=== PATIENT | female | born 1955 | race Caucasian/White ===

== ENCOUNTER 2018-11-18 14:37 | Inpatient (IN) | payer OTHER ==
[2018-11-18 17:14] VITALS: BMI 33.0
[2018-11-18 18:57] LABS: #Basophils 0.1 thou/uL (0.0-0.2); #Eosinphils 0.2 thou/uL (0.0-0.7); #Lymphocytes 1.9 thou/uL (1.20-3.40); #Monocytes 0.7 thou/uL (0.11-0.59); #Neutrophils 4.2 thou/uL (1.40-6.50); %Basophils 1.4 % (0.0-1.0); %Eosinophils 2.3 % (0.0-10.0); %Lymphocytes 26.8 % (21.0-51.0); %Monocytes 10.5 % (0.0-10.0); Hemoglobin 12.7 g/dL (12.0-16.0); Mean Corpuscular HGB CONC 33.1 g/dL (32.0-36.0); Mean Corpuscular Hemoglobin 33.9 pg (27.0-31.0); Mean Platelet Volume 7.8 fL (7.4-10.4); Platelet Count 269 thou/uL (130-400); RBC Distribution Width 11.7 % (11.5-14.5); Red Blood Cell (RBC) Count 3.75 mill/uL (4.20-5.40); White Blood Cell (WBC) Count 7.1 thou/uL (4.8-10.8)
[2018-11-18 19:22] LABS: Anion Gap 19 mmol/L (10-20); BUN (Urea Nitrogen) 17 mg/dL (9.8-20.1); Calc. Creatinine Clearance 102 mL/min (70-130); Calcium 10.1 mg/dL (7.8-10.44); Carbon Dioxide 21 mmol/L (23-31); Chloride 98 mmol/L (98-107); Estimated GFR-MDRD 68; Glucose 94 mg/dL (80-115); Magnesium 2.1 mg/dL (1.6-2.6); Potassium 3.7 mmol/L (3.5-5.1); Sodium 134 mmol/L (136-145)
[2018-11-18] MEDS ORDERED: Zolpidem Tartrate 5 MG TAB PO PRN (20:51)
[2018-11-18] MEDS: Sotalol HCl 80 MG TAB PO SCH (20:59)
[2018-11-18] MEDS: Atorvastatin Calcium 20 MG TAB PO SCH (21:08)
[2018-11-18] MEDS: Sacubitril 49 MG/Valsartan 51 MG TABLET PO SCH (21:08)
[2018-11-18] MEDS: Carvedilol 6.25 MG TAB PO SCH (21:09)
--- NOTE | 2018-11-19 04:42 | CON ---
DATE OF CONSULTATION: PRIMARY CARE PHYSICIAN: Ankita Boland. TAX MANAGER: Donald Garcia MD. EP TAX MANAGER: Chaitanya Quesada MD. CODE STATUS: The patient is a full code. CHIEF COMPLAINT: Atrial fibrillation and dyspnea on exertion. HISTORY OF PRESENT ILLNESS: The patient is a 63-year-old female, who is a direct admit from Dr. Quesada's office for initiation of sotalol therapy for AFib and dyspnea on exertion. We were asked to consult to otherwise medically manage. The patient reports in 10/2017, Dr. Garcia discovered a left bundle branch block. They inserted a pacemaker. In May, she started having some dyspnea on exertion. Dr. Quesada did a Holter monitor and discovered that she had AFib. They started having discussions in September about medical management. Three weeks ago, she had called the office and they scheduled her to come in on date of admission to start the sotalol therapy with EKG, labs, and monitoring. The patient was admitted to the telemetry unit with orders from Dr. Quesada's office. PAST MEDICAL HISTORY: Includes hypertension, left bundle branch block, atrial fibrillation, hyperlipidemia, and PUD. HOME MEDICATIONS: Include; 1. Entresto 97/103 mg one tablet p.o. b.i.d. 2. Aspirin 81 mg p.o. daily. 3. Lipitor 20 mg p.o. at bedtime. 4. Coreg 25 mg p.o. b.i.d. 5. Iron 325 mg p.o. daily. 6. Protonix 40 mg p.o. daily. 7. Spironolactone 25 mg p.o. daily. ALLERGIES: NONE. REVIEW OF SYSTEMS: CONSTITUTIONAL: Denies fever or chills. EYES: Denies any vision changes, eye pain. ENT: Denies sore throat, postnasal drip. CARDIOVASCULAR: Reports occasional palpitations. Reports dyspnea on exertion. Denies any orthopnea. RESPIRATORY: Denies cough. Denies shortness of breath. GI: Denies abdominal pain. Denies nausea, vomiting, or diarrhea. : Denies dysuria, hematuria. SKIN: Denies any skin changes or rash. NEUROLOGIC: Denies any dizziness, headache. ENDOCRINE: Denies any polyuria, polydipsia. PSYCH: Denies anxiety. Denies depression. PHYSICAL EXAMINATION: VITAL SIGNS: Temperature is 97.6, pulse 68, blood pressure 158/81, respiratory rate is 14, PO sat is 98% on room air. Repeat blood pressure 116/80. CONSTITUTIONAL: The patient appears in no distress and nontoxic, is alert and oriented to person, place, and time. HEAD: Normocephalic, atraumatic. EYES: Eyelids are normal to inspection. Pupils are equally round and reactive to light. ENT: Mouth exam is normal. Mucous membranes are moist. NECK: Normal range of motion. Trachea is midline. RESPIRATORY/CHEST: Breath sounds are clear. Chest movement is symmetrical. CARDIOVASCULAR: Heart rate is regular rate and rhythm. Heart sounds are normal. ABDOMEN: Nontender. Bowel sounds are heard. BACK: Normal inspection. Normal range of motion. UPPER EXTREMITY: Normal inspection. Normal range of motion. Pulses are equal bilaterally. LOWER EXTREMITY: Normal inspection. Normal range of motion. Pedal pulses are equal bilaterally. No edema is noted. NEUROLOGIC: The patient is oriented to person, place, and time. Speech is normal. SKIN: Normal, dry, normal in color. PSYCH: Has a normal affect. ASSESSMENT AND PLAN: 1. We will obtain baseline labs to start the sotalol therapy. Baseline EKG. 2. Hypertension. We will continue to trend. Continue home medications. Per Dr. Quesada's order, we will decrease Coreg to mg p.o. b.i.d. from 25 mg p.o. b.i.d. We will get in sotalol therapy as ordered. 3. Hyperlipidemia. Check lipids in the morning. We will continue home medication. 4. Peptic ulcer disease. We will continue home medications. 5. Deep venous thromboses. Prophylaxis will be started. 6. Hospital course will depend on clinical findings. Job ID: [id number]
[2018-11-19 05:27] LABS: #Eosinphils 0.1 thou/uL (0.0-0.7); #Lymphocytes 1.3 thou/uL (1.20-3.40); #Monocytes 0.7 thou/uL (0.11-0.59); %Basophils 0.6 % (0.0-1.0); %Eosinophils 2.8 % (0.0-10.0); %Lymphocytes 24.3 % (21.0-51.0); %Monocytes 13.9 % (0.0-10.0); %Neutrophils 58.4 % (42.0-75.0); Hemoglobin 12.7 g/dL (12.0-16.0); Mean Corpuscular Hemoglobin 33.8 pg (27.0-31.0); Mean Platelet Volume 7.8 fL (7.4-10.4); Platelet Count 239 thou/uL (130-400); RBC Distribution Width 11.7 % (11.5-14.5); Red Blood Cell (RBC) Count 3.77 mill/uL (4.20-5.40); White Blood Cell (WBC) Count 5.2 thou/uL (4.8-10.8)
[2018-11-19 05:47] LABS: Anion Gap 15 mmol/L (10-20); BUN (Urea Nitrogen) 15 mg/dL (9.8-20.1); Calc. Creatinine Clearance 101 mL/min (70-130); Calcium 9.8 mg/dL (7.8-10.44); Carbon Dioxide 23 mmol/L (23-31); Chloride 100 mmol/L (98-107); Estimated GFR-MDRD 67; Glucose 105 mg/dL (80-115); Magnesium 2.2 mg/dL (1.6-2.6); Potassium 4.2 mmol/L (3.5-5.1); Sodium 134 mmol/L (136-145)
--- NOTE | 2018-11-19 08:16 | PDOC.PN ---
- Subjective Encounter Start Date: 11/19/18 Encounter Start Time: 08:14 Subjective: has KENNEDY - Objective MAR Reviewed: Yes Vital Signs & Weight: Vital Signs (12 hours) Temp Pulse Resp BP BP Pulse Ox 11/19/18 04:00 98.0 F 86 16 120/83 100 11/18/18 23:39 97.6 F 68 14 116/80 98 11/18/18 20:59 91 158/81 H Weight Weight 211 lb 3 oz Result Diagrams: 11/19/18 04:29 11/19/18 04:29 Phys Exam - Physical Examination Neck: no JVD Respiratory: clear to auscultation bilateral Cardiovascular: RRR, no significant murmur Gastrointestinal: soft, non-tender, positive bowel sounds Musculoskeletal: no edema, edema present Dx/Plan (1) Cardiomyopathy Code(s): I42.9 - CARDIOMYOPATHY, UNSPECIFIED Status: Chronic Qualifiers: Cardiomyopathy type: unspecified Qualified Code(s): I42.9 - Cardiomyopathy , unspecified (2) HTN (hypertension) Code(s): I10 - ESSENTIAL (PRIMARY) HYPERTENSION Status: Chronic Qualifiers: Hypertension type: essential hypertension Qualified Code(s): I10 - Essential (primary) hypertension (3) Dyslipidemia Code(s): E78.5 - HYPERLIPIDEMIA, UNSPECIFIED Status: Chronic (4) Atrial arrhythmia Code(s): I49.8 - OTHER SPECIFIED CARDIAC ARRHYTHMIAS Status: Acute - Plan in for tykosyn loading, monitor EKG -: cont coreg, entresto * .
[2018-11-19] MEDS: Spironolactone 25 MG TAB PO SCH (10:00)
[2018-11-19] MEDS: Aspirin Chewable 81 MG TAB PO SCH (10:00)
[2018-11-19] MEDS: Sacubitril 49 MG/Valsartan 51 MG TABLET PO SCH ×2 (10:02→22:05)
[2018-11-19] MEDS: Sotalol HCl 80 MG TAB PO SCH ×2 (10:03→22:05)
[2018-11-19] MEDS: Carvedilol 6.25 MG TAB PO SCH ×2 (11:03→16:07)
--- NOTE | 2018-11-19 13:16 | HP ---
ELECTROPHYSIOLOGY CONSULTATION REASON FOR CONSULTATION: Medication management, sotalol loading, high burden of premature atrial contractions. REFERRING PHYSICIAN: Saulo Becerra MD PRIMARY CARE PROVIDER: Ankita Boland. HISTORY OF PRESENT ILLNESS: Ms. Metzger is a pleasant 63-year-old woman known to our practice for history of nonischemic cardiomyopathy, who has inclusion of a biventricular pacemaker that was placed in November 2017. Her heart failure is managed by Dr. Garcia. She was started on Entresto earlier this year, which initially made her to feel some improvement in relief from heart failure symptoms that she continues to struggle with shortness of breath that is consistently experience after 1 flight of stairs. She has seen very small improvement in her ejection fraction since undergoing SAFETY SPECIALIST device implant. She had a Holter monitor ordered in June 2018 that revealed high-burden PACs, but no ventricular ectopies. When she was seen for followup in September, it was decided to attempt arrhythmia suppression sotalol for frequent premature atrial complexes. Hopefully, this will offer some relief from her shortness of breath. Ultimately, we did discuss an ablation for her PACs, which she has previously declined. Ms. Metzger was admitted yesterday to [facility] for sotalol loading. She is in her usual state of health and feels well other than having her predictable shortness of breath with minimal exertion. She denies any heart racing, palpitations, chest pain, pressure, syncope, near syncope, stroke, stroke-like symptoms, or perceived ICD discharges. REVIEW OF SYSTEMS: A 12-point review of systems is conducted, is negative except that listed above in HPI. PAST MEDICAL HISTORY: 1. Nonischemic cardiomyopathy, ejection fraction 40%. 2. Left bundle branch block, corrected with SAFETY SPECIALIST pacing. 3. Hypertension. 4. Hypothyroidism. 5. Biventricular pacemaker, Medtronic implanted on 12/05/2017. 6. Frequent premature atrial complexes. ALLERGIES: NO KNOWN DRUG ALLERGIES. HOME MEDICATIONS: Include: 1. Entresto 97/103 mg p.o. b.i.d. 2. Aspirin 81 mg p.o. daily. 3. Coreg 25 mg p.o. b.i.d. 4. Aldactone 25 mg daily. 5. Pantoprazole 40 mg daily. 6. Ferrous sulfate 325 mg p.o. daily. 7. Atorvastatin 20 mg p.o. at bedtime. PHYSICAL EXAMINATION: VITAL SIGNS: Temperature 97.0, pulse 78, blood pressure 140/89, respirations 16, and oxygen is 98% on room air. GENERAL: The patient is alert and oriented, well groomed, well appearing. Affect is normal. HEENT: She is normocephalic. EOMs are intact. Oral mucosa is moist and pink. NECK: Supple without jugular venous distention. Thyroid is nonpalpable. LUNGS: Clear to auscultation bilaterally without wheezes, crackles, or rhonchi appreciated. CARDIOVASCULAR: Heart rate is regular without significant murmur, rub, or gallop. PMI is nondisplaced. The device is seen at the left infraclavicular fossa and site is without swelling, bruising, erosion, or drainage. ABDOMEN: Soft and nontender without palpable masses. EXTREMITIES: Warm and dry to touch without clubbing, cyanosis, or edema. NEUROLOGIC: Grossly intact and nonfocal. Her gait is stable. DATABASE: EKG and telemetry today reveal sinus rhythm, atrial pacing with intact AV edgardo conduction and ventricular capture with evidence of cardiac resynchronization therapy. A 12-lead EKG on admission reveals a QTc of 469 milliseconds. A 12-lead EKG from 11/18 at 2300 hours after first dose of sotalol 120 mg, QTc is 541 milliseconds. LABORATORY DATA: Hematology was reviewed and is unremarkable. Chemistry; potassium 4.2, creatinine 0.85, and magnesium is 2.2. IMPRESSION: 1. Premature atrial contractions, high burden possibly contributing to her shortness of breath. 2. Biventricular pacemaker in situ, normal operation benefitting from consistent cardiac resynchronization therapy. 3. Chronic systolic heart failure with a moderately reduced ejection fraction of 35% to 40%, NYHA functional class 3. 4. Normal heart catheterization 2 years ago. 5. Sotalol initiation with QTc prolongation after first dose of sotalol 120 mg. RECOMMENDATIONS: We will decrease sotalol to 80 mg, which was started with the morning dose on 11/19. Continue with 12-lead EKG two hours after every dose of sotalol. We will continue to monitor closely through telemetry. Thank you for allowing us to participate in the care of the patient. Job ID: [id number]
--- NOTE | 2018-11-19 18:22 | CON ---
DATE OF CONSULTATION: 11/19/2018 REASON FOR CONSULTATION: Heart failure management. HISTORY OF PRESENT ILLNESS: Ms. Metzger is a pleasant 63-year-old white female very well known to myself. I have been following for some years now. She comes to the hospital for inpatient initiation of sotalol. She was initially seen for a left bundle branch block. She had a heart catheterization as her EF was starting to come down, which was normal. No significant flow-limiting coronary artery disease. Eventually underwent a biventricular pacemaker placement in hopes to benefit from resynchronization therapy and despite that, her EF continues to come down. She initially had an EF of about 45%. Currently, she is at 35% to 40%. The only thing that has not been treated adequately is her large burden of PACs. Her blood pressures were controlled. She is on maximal medical therapy. She has about over 20,000 PACs, so EP was consulted and they decided to try to inhibit the PACs with sotalol. She is here for Tikosyn load as she had mild QT prolongation on initiation. PAST MEDICAL HISTORY: 1. Nonischemic cardiomyopathy, EF at 35% to 40%. 2. Left bundle branch block. 3. Hypertension. 4. Status post biventricular pacemaker implanted in November 2017 with further reduction in her EF after synchronization. 5. Hypothyroidism. 6. Very frequent high burden of PACs. OUTPATIENT MEDICATIONS: 1. Entresto 97/103 p.o. b.i.d. 2. Aspirin 81 a day. 3. Coreg 25 b.i.d. 4. Aldactone 25 mg a day. 5. Pantoprazole 40 a day. 6. Ferrous sulfate. 7. Atorvastatin 20 at bedtime. ALLERGIES: NO KNOWN DRUG ALLERGIES. SOCIAL HISTORY: No alcohol, tobacco, drugs. FAMILY HISTORY: No early coronary artery disease. REVIEW OF SYSTEMS: A 12-point review of systems was done and was found to be negative unless stated in the history of present illness. PHYSICAL EXAMINATION: VITAL SIGNS: Temperature 97.6, pulse 84, respiratory rate 17, saturating 97% on room air, blood pressure 118/78. GENERAL: Awake, alert, and oriented x3. No distress. HEENT: Normocephalic and atraumatic. NECK: Supple. LUNGS: Clear. CARDIOVASCULAR: S1 and S2. No S3 or S4. No murmurs. ABDOMEN: Soft. Positive bowel sounds. EXTREMITIES: No edema. SKIN: Warm and dry. LABORATORY DATA: Laboratory work was reviewed. White count of 7.1, hemoglobin 12, hematocrit 38, and platelet count of 269. Chemistry was reviewed. Sodium 134, potassium 4.2, chloride of 100, carbon dioxide of 23, anion gap of 15, BUN 15, creatinine 0.85, GFR 67, glucose of 105, calcium 9.8, magnesium 2.2. EKG was reviewed. Corrected QT at 469 milliseconds on admission after the first 120 mg dose of sotalol, corrected QT was at 541 milliseconds. ASSESSMENT AND PLAN: 1. Chronic systolic heart failure, moderate reduction, EF at 35% to 40%, [place] Functional Class 3. 2. Left bundle branch block. 3. Status post biventricular pacemaker, normal functioning, good resynchronization. 4. Large burden of premature atrial contractions. 5. Normal coronaries on heart cath 2 years ago. PLAN: 1. Continue to monitor. 2. Continue home regimen with Entresto, beta blockers, and Aldactone. 3. Keep benign electrolytes. 4. Further recommendations on sotalol dosage per EP. Job ID: [id number]
[2018-11-19] MEDS ORDERED: Sotalol HCl 80 MG TAB PO SCH (21:00)
[2018-11-19] MEDS: Atorvastatin Calcium 20 MG TAB PO SCH (22:05)
--- NOTE | 2018-11-20 09:50 | PDOC.PN ---
- Subjective Encounter Start Date: 11/20/18 Encounter Start Time: 09:49 Subjective: no complaints - Objective MAR Reviewed: Yes Vital Signs & Weight: Vital Signs (12 hours) Temp Pulse Resp BP Pulse Ox 11/20/18 03:07 97.0 F L 84 17 107/73 94 L 11/20/18 00:00 54 L 106/71 11/19/18 22:05 93 Weight Weight 211 lb 3 oz I&O: 11/19/18 11/20/18 11/21/18 06:59 06:59 06:59 Intake Total 2240 Balance 2240 Result Diagrams: 11/19/18 04:29 11/19/18 04:29 Phys Exam - Physical Examination Neck: no JVD Respiratory: clear to auscultation bilateral Cardiovascular: RRR, no significant murmur Gastrointestinal: soft, positive bowel sounds Musculoskeletal: no edema Dx/Plan (1) Cardiomyopathy Code(s): I42.9 - CARDIOMYOPATHY, UNSPECIFIED Status: Chronic Qualifiers: Cardiomyopathy type: unspecified Qualified Code(s): I42.9 - Cardiomyopathy , unspecified (2) HTN (hypertension) Code(s): I10 - ESSENTIAL (PRIMARY) HYPERTENSION Status: Chronic Qualifiers: Hypertension type: essential hypertension Qualified Code(s): I10 - Essential (primary) hypertension (3) Dyslipidemia Code(s): E78.5 - HYPERLIPIDEMIA, UNSPECIFIED Status: Chronic (4) Atrial arrhythmia Code(s): I49.8 - OTHER SPECIFIED CARDIAC ARRHYTHMIAS Status: Acute - Plan on sotaol- rhythm AV paced -: no tikosyn- prolonged QT * .
[2018-11-20] MEDS: Aspirin Chewable 81 MG TAB PO SCH (10:04)
[2018-11-20] MEDS: Sotalol HCl 80 MG TAB PO SCH (10:04)
[2018-11-20] MEDS: Carvedilol 6.25 MG TAB PO SCH (10:04)
[2018-11-20] MEDS: Sacubitril 49 MG/Valsartan 51 MG TABLET PO SCH (10:06)
[2018-11-20] MEDS: Spironolactone 25 MG TAB PO SCH (10:06)
[2018-11-20 13:39] VITALS: BP 158/74; TEMP 97.7
--- NOTE | 2018-11-20 14:25 | DIS ---
DATE OF ADMISSION: 11/18/2018 DATE OF DISCHARGE: 11/20/2018 TRANSFER OF CARE. PRIMARY CARE PROVIDER: Ankita Boland. . The patient admitted with cardiomyopathy, atrial arrhythmias, hypertension, dyslipidemia, pacemaker, complete left bundle-branch block. She was discharged on sotalol 80 mg twice a day, Aldactone 25 mg a day, Entresto 49/51 one tablet b.i.d., Coreg 6.25 mg twice a day, Lipitor 20 mg a day, aspirin 81 mg a day, ferrous sulfate 325 mg a day, and Protonix 40 mg a day. ALLERGIES: NO KNOWN DRUG ALLERGIES. DIET: Heart healthy. CODE STATUS: Full. PENDING AT TIME OF DISCHARGE: Nothing. HOSPITAL COURSE: The patient admitted for institution of sotalol therapy. QT intervals were monitored. The patient has had suppression of her atrial arrhythmias. She is being discharged. PERTINENT LABORATORY: CBC was unremarkable. Basic metabolic profile had a sodium of 134, CO2 of 21, otherwise unremarkable. Calcium and magnesium were normal. She is in an AV paced rhythm with consistent capture. She is being discharged by Dr. Quesada for followup with EP [facility]. No procedures were done. CONSULTATIONS: Dr. Donald Garcia, [facility] Hospitalist Service. Job ID: [id number] [facility]
--- NOTE | 2018-11-21 05:58 | DIS ---
DATE OF ADMISSION: 11/18/2018 DATE OF DISCHARGE: 11/20/2018 DIAGNOSES: High burden premature atrial complexes, nonischemic cardiomyopathy, chronic systolic heart failure. HISTORY OF PRESENT ILLNESS: Ms. Metzger is a pleasant 63-year-old woman known to our practice for nonischemic cardiomyopathy and chronic systolic heart failure, who suffers from chronic shortness of breath. She was found to have high burden premature atrial complexes by a Holter monitor and has been symptomatic with this. It was decided to initiate sotalol for arrhythmia suppression in hopes that she sees some improvement from her shortness of breath. She was admitted for sotalol loading the evening of 11/18/2018. Initially, she was started on sotalol 120 mg b.i.d., but was seen to have QTc prolongation. The dose was then reduced to 80 mg b.i.d., and QTc intervals have since stabilized. Her QTc by EKG this morning is 488 milliseconds. Baseline QTc was 469 milliseconds. She has inclusion of a biventricular ICD and ultimately is stable for discharge. Telemetry monitoring has not shown any ventricular arrhythmias and with her pacemaker in place, she is not at risk for bradycardic arrhythmias. SUBJECTIVE: Denies heart racing, palpitations, chest pain, pressure, syncope, near syncope, stroke, stroke-like symptoms. She denies shortness of breath at rest. She remains independent with ADLs and movement throughout the room. OBJECTIVE: VITAL SIGNS: Temperature 97.4, pulse 77, blood pressure 134/80, respirations 16, oxygen is 95% on room air. GENERAL: The patient is alert and oriented. Speech is clear. Affect is appropriate. No apparent distress. NECK: Supple without jugular venous distention. LUNGS: Clear to auscultation bilaterally without wheezes, crackles, or rhonchi. HEART: Heart rate is regularly regular without murmur, rub, or gallop. PMI is nondisplaced. Device is seated at the left infraclavicular fossa without swelling bruising, erosion, or drainage. ABDOMEN: Soft and nontender without palpable masses and hepatojugular reflux is negative. EXTREMITIES: Warm and dry to touch without clubbing, cyanosis, or edema. NEUROLOGIC: Grossly intact and nonfocal. DATABASE: EKG and telemetry were all personally reviewed. This reflects sinus rhythm with demand atrial pacing and a consistent ventricular pacing with her SACK DEPARTMENT SUPERVISOR device. Occasional PACs are still seen. No ventricular arrhythmias are noted. DEVICE CHECK: The patient has a Medtronic Percepta Quad SACK DEPARTMENT SUPERVISOR-P which was interrogated this morning on 11/20/2018. Lead impedances are stable. Battery longevity is estimated at 9 years. Current mode DDDR with a lower rate limit of 70. OptiVol fluid index was stable and well below the threshold. Heart rate variability is stable. VISE HAND 98%, AP 56%. Overall normal device check with consistent SACK DEPARTMENT SUPERVISOR pacing. DISCHARGE MEDICATIONS: Resuming home medications of: 1. Entresto 97 mg-103 mg p.o. b.i.d. 2. Aspirin 81 mg p.o. daily. 3. Spironolactone 25 mg daily. 4. Protonix 40 mg daily. 5. Iron 325 mg daily. 6. Lipitor 20 mg q.h.s. Discontinued medications: 1. Coreg 25 mg p.o. b.i.d. New prescriptions: 1. Sotalol 80 mg p.o. b.i.d. 2. Carvedilol 6.25 mg p.o. b.i.d. Prescriptions were electronically submitted. DISCHARGE INSTRUCTIONS: Continue to take sotalol 80 mg p.o. b.i.d. and other medications as prescribed. No further changes to medical regimen indicated. She will follow up with [facility] in 6 weeks or sooner if symptoms dictate for routine followup. She is discharged with no further restrictions. The patient will contact [facility] with any questions. Job ID: [id number]
== END 2018-11-20 14:05 | disposition home or self-care (01) | DRG 309 ==
LOC: 2NO 14:37
PROVIDERS: ADMIT Internal Medicine Cardiovascular Disease; ATTEND Internal Medicine Cardiovascular Disease
DX: I49.1 Atrial premature depolarization (principal); I50.22 Chronic systolic (congestive) heart failure; I42.9 Cardiomyopathy, unspecified; I44.7 Left bundle-branch block, unspecified; I11.0 Hypertensive heart disease with heart failure; E03.9 Hypothyroidism, unspecified; E78.5 Hyperlipidemia, unspecified; K27.9 Peptic ulcer, site unspecified, unspecified as acute or chronic, without hemorrhage or perforation; Z79.82 Long term (current) use of aspirin; Z95.0 Presence of cardiac pacemaker
CPT/HCPCS: 36415; 80048; 83735; 85025; 93005; 93010

== ENCOUNTER 2019-02-04 07:36 | Outpatient (CLI) | payer OTHER | END 2019-02-04 07:37 | disposition home or self-care (01) | LOC: CP 07:36 | PROVIDERS: ATTEND Internal Medicine Cardiovascular Disease | DX: Z51.81 Encounter for therapeutic drug level monitoring (principal); Z79.899 Other long term (current) drug therapy | CPT/HCPCS: 94060; 94727; 94729 ==

== ENCOUNTER 2020-01-07 06:58 | Outpatient (CLI) | payer MEDICARE ==
[2020-01-07 11:26] LABS: Mean Corpuscular HGB CONC 33.3 g/dL (32.0-36.0); Mean Corpuscular Hemoglobin 34.2 pg (27.0-31.0); Mean Platelet Volume 8.9 fL (7.4-10.4); Platelet Count 237 thou/uL (130-400); RBC Distribution Width 12.3 % (11.5-14.5); Red Blood Cell (RBC) Count 3.82 mill/uL (4.20-5.40); White Blood Cell (WBC) Count 5.4 thou/uL (4.8-10.8)
[2020-01-07 11:28] LABS: INR-International Normal Ratio 1.1; Prothrombin Time 13.9 SEC (12.0-14.7)
[2020-01-07 11:45] LABS: Anion Gap 14 mmol/L (10-20); BUN (Urea Nitrogen) 11 mg/dL (9.8-20.1); Calc. Creatinine Clearance 0 mL/min (70-130); Calcium 10.1 mg/dL (7.8-10.44); Carbon Dioxide 25 mmol/L (23-31); Chloride 102 mmol/L (98-107); Estimated GFR-MDRD 73; Glucose 111 mg/dL (80-115); Potassium 5.4 mmol/L (3.5-5.1); Sodium 136 mmol/L (136-145)
== END 2020-01-07 06:59 | disposition home or self-care (01) ==
LOC: LABBT 06:58
PROVIDERS: ATTEND Internal Medicine Cardiovascular Disease
DX: Z01.812 Encounter for preprocedural laboratory examination (principal); I48.91 Unspecified atrial fibrillation
CPT/HCPCS: 80048; 85027; 85610; 85730; 93005; 93010

== ENCOUNTER 2020-01-10 06:51 | Observation (INO) | payer MEDICARE ==
[2020-01-07 10:08] VITALS: BMI 33.9
[2020-01-10] MEDS ORDERED: Lidocaine 1% (PF) 30 ML VIAL ONE (09:46)
[2020-01-10] MEDS ORDERED: Heparin 10,000 UNITS/1 ML VIAL ONE (09:46)
[2020-01-10] MEDS ORDERED: PHENYLEPHRINE-NS 100 MCG/ML 10 ML SYRINGE ONE (10:07)
[2020-01-10] MEDS ORDERED: Dexamethasone 20 MG/5 ML VIAL ONE (10:07)
[2020-01-10] MEDS ORDERED: EPHEDRINE 25 MG/5 ML SYRINGE ONE (10:07)
[2020-01-10] MEDS ORDERED: Lidocaine 1% PF 5 ML VIAL ONE (10:07)
[2020-01-10] MEDS ORDERED: Ondansetron PF 4 MG/2 ML Vial ONE (10:07)
[2020-01-10] MEDS ORDERED: Rocuronium Bromide 10 MG/ML (10ML VIAL) ONE (10:07)
[2020-01-10] MEDS ORDERED: PROPOFOL 200 MG/20 ML VIAL ONE (10:07)
[2020-01-10] MEDS ORDERED: Heparin 25,000 units/D5W 500 ML ONE (10:20)
[2020-01-10] MEDS ORDERED: Fentanyl 100 MCG/2 ML VIAL ONE ×3 (11:07→14:20)
[2020-01-10] MEDS ORDERED: Isoproterenol 0.2 MG/1 ML AMP ONE (11:19)
[2020-01-10] MEDS ORDERED: Furosemide 20 MG TAB PO PRN (20:02)
[2020-01-10] MEDS: Carvedilol 6.25 MG TAB PO SCH (20:08)
[2020-01-10] MEDS: Apixaban 5 MG TAB PO SCH (20:08)
[2020-01-10] MEDS: Atorvastatin Calcium 40 MG TAB PO SCH (20:09)
[2020-01-10] MEDS: Sacubitril 49 MG/Valsartan 51 MG TABLET PO SCH (20:09)
[2020-01-10] MEDS: Sucralfate 1 GM TAB PO SCH (20:14)
[2020-01-11 05:11] LABS: Platelet Count 209 thou/uL (130-400)
[2020-01-11] MEDS: Ferrous Sulfate 325 MG TAB PO SCH (08:33)
[2020-01-11] MEDS: Apixaban 5 MG TAB PO SCH ×2 (08:33→19:56)
[2020-01-11] MEDS: Carvedilol 6.25 MG TAB PO SCH ×2 (08:33→19:55)
[2020-01-11] MEDS: Aspirin 81 mg Enteric Coated Tablet PO SCH (08:33)
[2020-01-11] MEDS: Sucralfate 1 GM TAB PO SCH ×4 (08:33→19:55)
[2020-01-11] MEDS: Sacubitril 49 MG/Valsartan 51 MG TABLET PO SCH ×2 (08:34→19:55)
[2020-01-11] MEDS: Ketorolac Tromethamine 30 MG/ML VIAL IVP PRN ×2 (08:34→17:51)
[2020-01-11] MEDS ORDERED: Potassium Chloride 20 MEQ TAB PO PRN (09:00)
--- NOTE | 2020-01-11 10:42 | OP ---
DATE OF PROCEDURE: 01/10/2020 REASON FOR PROCEDURE: Ms. Metzger is a 64-year-old woman with history of CHF and nonischemic cardiomyopathy, Bi-V pacemaker in place, paroxysmal atrial fibrillation, PACs, occasional PVCs with LVEF 40% to 45%. She has got advancing symptoms and poor DIGITAL MARKETING APPRENTICE pacing due to frequent PACs. She is here for pulmonary venous isolation procedure and PAC ablation as well. DESCRIPTION OF PROCEDURE: The patient received general anesthesia by Anesthesia specialist. After adequate level of sedation achieved, both femoral venous areas were prepped, draped, anesthetized with subcutaneous lidocaine and under ultrasound guidance, both femoral veins cannulated x2. On the left side, an 11-Serbian sheath was used to advance the intracardiac echocardiogram probe to the right atrium, where it was used to monitor the pericardial space, catheter manipulation as well as transseptal puncture. Also through the left femoral vein, a Preface long sheath was introduced, which was used to deliver a Duodeca catheter to the CS in the right atrial position. From the right femoral vein, two 8-Serbian short sheaths were introduced, through which a ThermoCool SFST catheter was used to obtain 3D image of the right atrium. Following that, the right-sided sheaths were exchanged to SL1 sheaths, which were used to perform a transseptal puncture under fluoroscopic and intracardiac echo monitoring after IV heparin bolus and drip was instituted. The IV heparin was monitored with a regular ACT throughout the case keeping ACT over 350. Target adjustments were made. Through the transseptal sheath, a 20-pole Lasso catheter and a ThermoCool SFST catheter were advanced to the left atrium. The 3D map of left atrium obtained and a standard pulmonary venous isolation procedure was performed. The posterior wall was also isolated with roof and the inferior line box lesion set. Throughout the posterior wall ablations, esophageal temperature probe was adjusted and monitored to avoid excessive esophageal heating. After completion of the isolation of pulmonary veins, frequent PACs still were seen. Ablation in the inferior wall over CS roof were performed to eliminate the PACs. Additional lesions were set, delivered at the septal wall as well. Following that, Isuprel was administered and any reconnection to the posterior wall and the pulmonary veins were re-ablated. The catheter was advanced to left ventricle, and left ventricular pacing was performed achieving retrograde Wenckebach cycle length at 450 msec. After Isuprel washout, no accessory pathway were noted. Antegrade Wenckebach cycle was 330 msec. Following that, the catheter was removed from the left side. IV heparin was stopped and additional mapping of the prevalent PAC morphologies was performed. PAC was noted to be in the superior septum on the right atrium not in the immeditate proximity of His bundle. The radiofrequency ablation at this location eliminated the PACs with the most frequent morphology. Following that, additional PACs were seen from the right posterolateral region. High-voltage pacing at this area did not induce a diaphragmatic response and radiofrequency ablation area also reduced PACs. At the end of the case, burst atrial pacing still induced atrial fibrillation, which was promptly cardioverted. The HV interval was measured 45 msec, unchanged. No additional atrial arrhythmias were induced. No accessory pathway seen. CONCLUSION: 1. Successful 4 pulmonary venous isolation as well as posterior wall isolation performed. 2. Additional inferior wall lesions and septal lesions in the left atrium delivered. 3. Two separate morphologies of PACs were tracked down in the left atrium and ablated as above. 4. Normal AV edgardo His-Purkinje function pre and post ablation. 5. Normal pacemaker function was checked before and after procedure and no lead malfunction seen. PLAN: Continue oral anticoagulation. Monitor for recurrent arrhythmias and possibly stop sotalol. Job ID: [id number] [facility]
[2020-01-11] MEDS ORDERED: Morphine 2 MG/ML SYRINGE SLOW IVP PRN (13:14)
--- NOTE | 2020-01-11 15:31 | PDOC.EP ---
- Subjective Date: 01/11/20 Time: 08:00 Interval History: Ms. Metzger is a 64-year-old woman with history of CHF and nonischemic cardiomyopathy, Bi-V pacemaker in place, paroxysmal atrial fibrillation, PACs, occasional PVCs with LVEF 40% to 45%. She has advancing symptoms and poor CAMP NURSE pacing due to frequent PACs. She had pulmonary venous isolation procedure and PAC ablation as well, 41 min on 01/09. Today she is having a moderately headache and neck ache. Toradol IV was given recently - Review of Systems Constitutional: denies: chills, fever, malaise, sweats, weakness, other Respiratory: denies: cough, dry, hemoptysis, pleuritic pain, shortness of breath , SOB with excertion, sputum, wheezing, other Cardiology: denies: chest pain, edema, heart racing, light headedness, palpitations, passing out Gastrointestinal: denies: abdominal pain, constipation, diarrhea Neurological: reports: headache - Objective Allergies/Adverse Reactions: Allergies Allergy/AdvReac Type Severity Reaction Status Date / Time No Known Allergies Allergy Verified 01/07/20 10:00 Current Medications Apixaban (Eliquis) 5 mg PO BID [facility] Last Admin: 01/11/20 08:33 Dose: 5 mg Aspirin (Ecotrin) 81 mg PO DAILY [facility] Last Admin: 01/11/20 08:33 Dose: 81 mg Atorvastatin Calcium (Lipitor) 40 mg PO HS [facility] Last Admin: 01/10/20 20:09 Dose: 40 mg Carvedilol (Coreg) 12.5 mg PO BID [facility] Last Admin: 01/11/20 08:33 Dose: 12.5 mg Ferrous Sulfate (Feosol) 325 mg PO DAILY [facility] Last Admin: 01/11/20 08:33 Dose: 325 mg Furosemide (Lasix) 20 mg PO DAILYPRN PRN PRN Reason: Dyspnea Ketorolac Tromethamine (Toradol) 30 mg IVP Q6H PRN PRN Reason: Mild-Moderate Pain (1-5) Stop: 01/15/20 20:03 Last Admin: 01/11/20 08:34 Dose: 30 mg Morphine Sulfate (Morphine) 2 mg SLOW IVP Q4H PRN PRN Reason: Severe Pain (7-10) Last Admin: 01/11/20 13:28 Dose: 2 mg Pantoprazole Sodium (Protonix) 40 mg PO DAILY [facility] Stop: 02/09/20 09:01 Last Admin: 01/11/20 08:34 Dose: Not Given Potassium Chloride (K-Dur) 20 meq PO DAILYPRN PRN PRN Reason: LASIX Sacubitril/Valsartan (Entresto 49 Mg-51 Mg Tablet) 2 tab PO BID [facility] Last Admin: 01/11/20 08:34 Dose: 2 tab Sucralfate (Carafate) 1 gm PO ACHS [facility] Stop: 01/24/20 17:01 Last Admin: 01/11/20 13:28 Dose: 1 gm Vital Signs & Weight: Vital Signs Temp Pulse Resp BP BP Pulse Ox 01/11/20 11:51 98.8 F 78 14 126/80 92 L 01/11/20 08:13 99.5 F 86 18 120/75 96 01/11/20 03:56 97.9 F 79 17 136/83 97 Weight 210 lb I/O: I/O 01/10/20 01/11/20 01/12/20 06:59 06:59 06:59 Intake Total 240 480 Output Total 800 Balance -560 480 - Quality Measures CV meds: Eliquis: Yes (post PVAI) - Physical Exam General: alert & oriented x3, speech clear, other (appears in pain) HEENT: mucus membranes moist, normocephaly Neck: supple neck, midline trachea, no JVD/HJR, no lymphadenopathy Cardiology: regular rate and rhythm, no murmur, PMI nondisplaced Lungs: clear to auscultation, normal breath sounds, no wheeze, rales, rhonchi Neurology: cranial nerve 2-12 intact, sensory function intact, no lateralizing findings Abdomen: unremarkable, active bowel sounds, no pulsations/bruits Extremities: dry, strong pulses, warm Skin: groin sites stable - Labs Result Diagrams: 01/11/20 04:55 01/11/20 04:55 - EKG Interpretation Status: report reviewed by me EKG Method: Telemetry EKG shows: Sinus rhythm, Typical atrial flutter - Device Device: biventricular, pacemaker Device Result: Medtronic - Assessment/Plan Assessment/Plan: 1. PAC, high burden -s/p PVAI with PAC ablation in Right atrium, 41 min RFA - occasional PACs seen on tele and single PAT run -previously requiring Sotalol for suppression. Sotalol currently stopped 2. PVCs - low-moderate burden 3. LV dyssynchrony -CAMP NURSE-P in situ with normal function 4. Headache -post ablation -BP stable and on OAC, low concern for CVA -pain medication PRN Plan for DC once pain is controlled. Rhythm stable.
[2020-01-11] MEDS ORDERED: Furosemide 40 MG/4 ML VIAL SLOW IVP SCH (17:15)
[2020-01-11 17:43] LABS: #Monocytes 0.8 thou/uL (0.11-0.59); #Neutrophils 6.4 thou/uL (1.40-6.50); %Eosinophils 0.4 % (0.0-10.0); %Lymphocytes 11.8 % (21.0-51.0); %Monocytes 9.6 % (0.0-10.0); %Neutrophils 78.3 % (42.0-75.0); Hemoglobin 10.4 g/dL (12.0-16.0); Mean Corpuscular HGB CONC 33.7 g/dL (32.0-36.0); Mean Corpuscular Hemoglobin 34.9 pg (27.0-31.0); Mean Platelet Volume 8.2 fL (7.4-10.4); Platelet Count 173 thou/uL (130-400); RBC Distribution Width 12.1 % (11.5-14.5); Red Blood Cell (RBC) Count 2.97 mill/uL (4.20-5.40); White Blood Cell (WBC) Count 8.2 thou/uL (4.8-10.8)
[2020-01-11 18:05] LABS: Anion Gap 12 mmol/L (10-20); BUN (Urea Nitrogen) 7 mg/dL (9.8-20.1); Calc. Creatinine Clearance 107 mL/min (70-130); Calcium 8.1 mg/dL (7.8-10.44); Carbon Dioxide 24 mmol/L (23-31); Chloride 96 mmol/L (98-107); Estimated GFR-MDRD 73; Glucose 121 mg/dL (80-115); Potassium 3.7 mmol/L (3.5-5.1); Sodium 128 mmol/L (136-145)
[2020-01-11] MEDS: Atorvastatin Calcium 40 MG TAB PO SCH (19:56)
--- NOTE | 2020-01-11 22:55 | EKG ---
Test Reason : Blood Pressure : / mmHG Vent. Rate : 084 BPM Atrial Rate : 084 BPM P-R Int : 170 ms QRS Dur : 084 ms QT Int : 402 ms P-R-T Axes : 029 109 -08 degrees QTc Int : 475 ms Electronic ventricular pacemaker When compared with ECG of 10-JAN-2020 16:33, (Unconfirmed) Premature ventricular complexes are no longer Present Vent. rate has decreased BY 21 BPM Confirmed by MITESH PEMBERTON, SBrandon ([id number]) on 01/11/2020 10:55:01 PM Referred By: [facility] Confirmed By:DR. Venkatesh SAGASTUME MD
[2020-01-12] MEDS: Aspirin 81 mg Enteric Coated Tablet PO SCH (08:57)
[2020-01-12] MEDS: Sacubitril 49 MG/Valsartan 51 MG TABLET PO SCH (08:57)
[2020-01-12] MEDS: Apixaban 5 MG TAB PO SCH (08:57)
[2020-01-12] MEDS: Ferrous Sulfate 325 MG TAB PO SCH (08:57)
[2020-01-12] MEDS: Sucralfate 1 GM TAB PO SCH ×2 (08:57→12:35)
[2020-01-12] MEDS: Carvedilol 6.25 MG TAB PO SCH (08:57)
[2020-01-12 11:48] VITALS: BP 114/75; TEMP 97.9
--- NOTE | 2020-01-12 14:31 | DIS ---
DATE OF ADMISSION: 01/10/2020 DATE OF DISCHARGE: 01/12/2020 ADMISSION DIAGNOSIS: High burden premature atrial complexes. PROCEDURE PERFORMED: Includes three dimensional mapping electrophysiology study with radiofrequency ablation of PACs and pulmonary venous antrum isolation. SUBJECTIVE: Ms. Metzger is a 64-year-old woman with a history of congestive heart failure, nonischemic cardiomyopathy with a biventricular pacemaker in place. Her congestive heart failure exacerbations were linked with high burden PACs and occasional PVCs with reduction in LVEF 40% to 45%. She had required sotalol for PAC suppression, but was continued to have rhythm issues refractory to sotalol and the decision was made to move forward with electrophysiology study and ablation. This was performed on 01/10/2020. She underwent successful 4 pulmonary venous isolation as well as posterior wall isolation. Additional inferior wall lesions and septal lesions of the left atrium were delivered. Two separate morphologies of PACs were tracked down in the right atrium and ablated. At the end of the case, a burst atrial pacing still induced atrial fibrillation which was cardioverted. Ms. Metzger did well postablation, rhythm has been stable with occasional PACs and PVCs seen. She continues to have consistent RANGE AIDE pacing demonstrated on telemetry and a normal functioning pacemaker. She did struggle with headache, post ablation was kept an additional night for pain management with her significant headache. Her vital signs have been stable and now she voices that her headache is resolved and she is ready to discharge home. OBJECTIVE: VITAL SIGNS: Temperature 97.9, pulse 87, blood pressure 114/75, oxygenation is 94% on room air. GENERAL: The patient is alert, oriented. Speech is clear. Affect is appropriate. No apparent distress at time exam. LUNGS: Clear to auscultation. HEART: Rate is irregularly irregular. Left precordial device is palpable subcutaneous. ABDOMEN: Obese, soft, and nontender. NEUROLOGIC: Grossly intact and nonfocal. Gait was stable. Bilateral groin sites are stable without evidence of hematoma or bleeding complications. DISCHARGE INSTRUCTIONS: 1. Continue Eliquis for at least 6 to 8 weeks post ablation. 2. Stop sotalol unless recurrent arrhythmia issues are seen. 3. Follow up in 6 weeks or sooner if symptoms dictate. 4. post ablation packet for activity restrictions. DISCHARGE MEDICATIONS: Resuming home medications of 1. Iron. 2. Baby aspirin. 3. Eliquis 5 mg b.i.d. 4. Entresto 97-103 b.i.d. 5. Carvedilol b.i.d. 6. Atorvastatin at bedtime. 7. Prescriptions called in for Protonix 40 mg daily. 8. Sucralfate 1 g p.o. q.i.d. 9. Potassium chloride 20 mEq p.o. p.r.n. to be taken with Lasix. 10. Lasix 20 mg p.o. daily p.r.n. shortness of breath and fluid retention. CONDITION AT DISCHARGE: Stable. Job ID: [id number]
== END 2020-01-12 12:48 | disposition home or self-care (01) ==
LOC: CCL 06:51 → 2SW 17:45
PROVIDERS: ADMIT Internal Medicine Cardiovascular Disease; ATTEND Internal Medicine Cardiovascular Disease
PROC: 02583ZZ Destruction of Conduction Mechanism, Percutaneous Approach (ICD-10-PCS; principal; 2020-01-10)
PROC: 02K83ZZ Map Conduction Mechanism, Percutaneous Approach (ICD-10-PCS; 2020-01-10)
DX: I49.1 Atrial premature depolarization (principal); I49.3 Ventricular premature depolarization; I11.0 Hypertensive heart disease with heart failure; I50.22 Chronic systolic (congestive) heart failure; I42.8 Other cardiomyopathies; I48.0 Paroxysmal atrial fibrillation; E03.9 Hypothyroidism, unspecified; R51 Headache; Z79.01 Long term (current) use of anticoagulants; Z79.82 Long term (current) use of aspirin; Z79.899 Other long term (current) drug therapy; Z95.0 Presence of cardiac pacemaker
CPT/HCPCS: 76942; 80048; 82565; 85014; 85018; 85025; 85049; 85347 ×2; 92960; 93005 ×2; 93613; 93622; 93623; 93656; 93657; C1731; C1732 ×3; C1759; C1769; 36415; 93010; 96374; 96375; 96376; G0378; J1100; J1644; J1885; J1940; J2001; J2270; J2405; J2704; J3010

== ENCOUNTER 2020-01-18 00:53 | Observation (INO) | payer MEDICARE ==
[2020-01-18 01:31] LABS: #Eosinphils 0.2 thou/uL (0.0-0.7); #Lymphocytes 1.4 thou/uL (1.20-3.40); #Monocytes 0.6 thou/uL (0.11-0.59); #Neutrophils 4.8 thou/uL (1.40-6.50); %Eosinophils 2.9 % (0.0-10.0); %Lymphocytes 19.8 % (21.0-51.0); %Monocytes 8.8 % (0.0-10.0); %Neutrophils 68.6 % (42.0-75.0); Hemoglobin 11.2 g/dL (12.0-16.0); Mean Corpuscular HGB CONC 33.8 g/dL (32.0-36.0); Mean Corpuscular Hemoglobin 34.6 pg (27.0-31.0); Mean Platelet Volume 8.3 fL (7.4-10.4); Platelet Count 298 thou/uL (130-400); RBC Distribution Width 12.1 % (11.5-14.5); Red Blood Cell (RBC) Count 3.24 mill/uL (4.20-5.40)
[2020-01-18 01:59] LABS: ALT (SGPT) 76 U/L (8-55); AST (SGOT) 71 U/L (5-34); Albumin 4.4 g/dL (3.4-4.8); Alkaline Phosphatase 120 U/L (40-110); Anion Gap 16 mmol/L (10-20); BUN (Urea Nitrogen) 16 mg/dL (9.8-20.1); Bilirubin, Total 0.6 mg/dL (0.2-1.2); CK (CPK) 44 U/L (29-168); Calc. Creatinine Clearance 0 mL/min (70-130); Calcium 9.4 mg/dL (7.8-10.44); Carbon Dioxide 24 mmol/L (23-31); Chloride 104 mmol/L (98-107); Estimated GFR-MDRD 61; Globulin 2.5 g/dL (2.4-3.5); Glucose 117 mg/dL (80-115); Potassium 3.8 mmol/L (3.5-5.1); Protein, Total 6.9 g/dL (6.0-8.3); Sodium 140 mmol/L (136-145)
[2020-01-18] MEDS ORDERED: Furosemide 40 MG/4 ML VIAL ONE (02:18)
[2020-01-18 02:19] LABS: CKMB 0.5 ng/mL (0-6.6)
[2020-01-18 03:32] VITALS: BMI 33.3
[2020-01-18 05:12] LABS: Troponin I 0.075 ng/mL (< 0.028)
--- NOTE | 2020-01-18 07:31 | RAD ---
Exam: Chest one view HISTORY:Difficulty breathing. Comparison: None FINDINGS: Pacing device: 3 lead left-sided transvenous pacemaker with lead positioned over the right atrium, ri ght ventricle and coronary sinus. Cardiac silhouette:Cardiomegaly Aorta: Unremarkable Pulmonary vessels: Slightly prominent Costophrenic angles: Clear LUNGS: Diffuse reticulonodular opacities. Pneumothorax: None Osseous abnormalities: None IMPRESSION: Congestive heart failure.
[2020-01-18 08:51] LABS: Troponin I 0.105 ng/mL (< 0.028)
[2020-01-18] MEDS ORDERED: hydrALAZINE 20 MG/ML VIAL SLOW IVP PRN (09:46)
[2020-01-18] MEDS ORDERED: Acetaminophen 325 MG TAB PO PRN (09:46)
--- NOTE | 2020-01-18 10:28 | HP ---
PRIMARY CARE PHYSICIAN: Dr. Rae Garcia. CHIEF COMPLAINT: Shortness of breath. HISTORY OF PRESENT ILLNESS: Ms. Metzger is a pleasant 64-year-old female who has a history of chronic systolic heart failure as well as hypertension. She recently underwent an ablation for high frequency premature atrial contractions. She says that she left the hospital, and she felt good until the night before admission. She says that she went to bed and then suddenly she could not breathe. She says that she had to sit up and felt better, but by this time she says her "anxiety kicked in" and that made things worse. As a result, she came to the ER for evaluation. During this time, she denied having any chest pain. She occasionally felt her heart racing. No cough or congestion. No fevers, no chills. When she was evaluated in the ER, she was found to have findings consistent with congestive heart failure, and she was placed in observation. The patient says that she did get a call from the rubber stamps and dies supervisor office saying that she did have some underlying atrial fibrillation. REVIEW OF SYSTEMS: All systems were reviewed and are negative except for that mentioned in the History of Present Illness. PAST MEDICAL HISTORY: Significant for chronic systolic heart failure, left bundle-branch block, hypertension, and also the hypothyroid is listed in her records, but she denies having hypothyroidism. PAST SURGICAL HISTORY: She has had a biventricular pacer placed. She is status post radiofrequency ablation of the pulmonary venous sinus. She says she has had a colonoscopy and left heart catheterization, which was negative for any flow-limiting diseases. She had a and tonsillectomy. ALLERGIES: NO KNOWN DRUG ALLERGIES. SOCIAL HISTORY: She is . She has 2 children. She is a nonsmoker and nondrinker. Denies any drug use. She is a full code. FAMILY HISTORY: No history of any heritable diseases. CURRENT MEDICATIONS: Include: 1. Eliquis 5 mg twice daily. 2. Aspirin 81 mg daily. 3. Atorvastatin 40 mg at bedtime. 4. Carvedilol 12.5 mg twice a day. 5. Iron sulfate 325 mg daily. 6. Protonix 40 mg daily. 7. Entresto 97/103 mg twice a day. 8. Sotalol 80 mg twice a day. 9. Lasix 20 mg as needed. 10. Potassium chloride 20 mEq as needed. 11. Carafate 1 g q.i.d. PHYSICAL EXAMINATION: GENERAL: She is alert and oriented. She appears to be in no acute distress. She is well developed and well nourished. VITAL SIGNS: Blood pressure 142/95, heart rate 92, respiratory rate of 18, and temperature is 98.4. HEENT: Pupils are equal, round, and reactive. Extraocular muscles are intact. Her sclerae anicteric. Throat, there is no erythema, no exudates. NECK: No adenopathy. No bruits. LUNGS: Essentially clear to auscultation. There were some rales at the bases. CARDIOVASCULAR: She has a normal S1 and S2. There is no S3 or S4. She did have occasional premature contractions. ABDOMEN: Soft, nontender, and nondistended. Positive for bowel sounds. No rebound. No guarding. No organomegaly. EXTREMITIES: She has no edema. No calf tenderness. No joint effusions. NEUROLOGIC: Grossly nonfocal. LABORATORY RESULTS: White blood cell count is 7, hemoglobin 11.2, hematocrit is 33.1, and platelet count is 298. Sodium 140, potassium 3.8, chloride is 104, CO2 is 24, BUN of 16, creatinine 0.92, glucose is 117. Troponin is 0.075. Natriuretic peptide is 215. On her chest x-ray by my reading, she has cardiomegaly, increased pulmonary vascular markings. On her EKG, it is primarily paced. It is very difficult for me to determine the underlying rhythm. It appears irregular. ASSESSMENT: 1. This is a pleasant 64-year-old female who presents with acute on chronic systolic heart failure. She says she has never had to take Lasix on a regular basis and had not taken any Lasix prior to this event, and there is some concern that she could have some atrial fibrillation. The patient will be placed in observation. We will have her pacemaker interrogated to see what the underlying predominant rhythm is and consult her rubber stamps and dies supervisor for recommendations. I suspect she will need a scheduled dosing of the Lasix if only at minimum once or two a few times a week. 2. Hypertension. Her blood pressure appears to be fairly well controlled. We will reconcile and restart her home medications. 3. I do not see a recent echo; however, I suspect she may have had this in one of her cardiologists' office, and we will defer any repeat echo to Cardiology. 4. We will continue her anticoagulation. Job ID: [id number]
[2020-01-18] MEDS ORDERED: Furosemide 20 MG/2 ML VIAL SLOW IVP SCH ×2 (10:30→18:00)
[2020-01-18] MEDS ORDERED: Sotalol HCl 80 MG TAB PO SCH (10:45)
[2020-01-18] MEDS ORDERED: Sacubitril 49 MG/Valsartan 51 MG TABLET PO SCH (10:45)
[2020-01-18] MEDS ORDERED: Apixaban 5 MG TAB PO SCH (10:45)
[2020-01-18] MEDS ORDERED: Carvedilol 6.25 MG TAB PO SCH (10:45)
[2020-01-18] MEDS ORDERED: Furosemide 40 MG/4 ML VIAL SLOW IVP SCH (11:00)
[2020-01-18] MEDS: Sucralfate 1 GM TAB PO SCH ×3 (11:43→20:49)
[2020-01-18] MEDS ORDERED: Potassium Chloride 20 MEQ TAB PO SCH ×2 (15:15→18:00)
--- NOTE | 2020-01-18 15:50 | CON ---
DATE OF CONSULTATION: 01/18/2020 REASON FOR CONSULTATION: Severe episode of congestive heart failure. HISTORY OF PRESENT ILLNESS: Ms. Metzger is a 64-year-old woman with history of systolic and diastolic congestive heart failure. The patient came to the emergency room last night with severe difficulty breathing, being unable to lay even about a 45 degrees angle without more shortness of breath. She was found to be in pulmonary edema on chest x-ray. PAST MEDICAL HISTORY: 1. She has history of normal coronary arteries and catheterization. 2. She has a history of very frequent PACs. 3. History of biventricular pacemaker. 4. Recent atrial fibrillation ablation to try to help with the frequent PACs as she was not getting the full benefit of her biventricular pacemaker due to the PACs. 5. The patient underwent atrial fibrillation ablation just a little over a week ago. MEDICATIONS: At home included; 1. Entresto. 2. Apixaban. 3. Aspirin. 4. Atorvastatin. 5. Carvedilol. 6. Sotalol. ALLERGIES: NONE KNOWN. SOCIAL HISTORY: No significant alcohol or tobacco. REVIEW OF SYSTEMS: CONSTITUTIONAL: Positive for difficulty breathing. Otherwise, negative. PHYSICAL EXAMINATION: GENERAL: This is a pleasant elderly woman, in no distress. She said she is feeling dramatically better. The nurse said she has put out about 3 L of urine. VITAL SIGNS: Blood pressure still high at 164/100, pulse 80s. LUNGS: Clear. CARDIAC: Normal S1, normal S2. ABDOMEN: Soft, nontender. EXTREMITIES: No clubbing or cyanosis. There is no edema. SKIN: Warm and dry. LABORATORY DATA: Initial chest x-ray showed pulmonary edema. Potassium this morning is 3.8. Troponin indeterminate at 0.102 probably related to demand. BNP 289. ASSESSMENT: 1. Congestive heart failure, systolic and diastolic mixed, with ejection fraction of 40% to 45%. 2. Hypertension. 3. Recent PAC ablation. PLAN: 1. Continue diuretics. 2. Add spironolactone tomorrow. 3. Regular potassium. She has put out a lot of urine today. 4. Potentially could go home tomorrow. Dr. Garcia will see her tomorrow morning. Job ID: [id number]
[2020-01-18] MEDS: Carvedilol 6.25 MG TAB PO SCH (19:22)
[2020-01-18] MEDS: Sotalol HCl 80 MG TAB PO SCH (19:22)
[2020-01-18] MEDS: Sacubitril 49 MG/Valsartan 51 MG TABLET PO SCH (20:47)
[2020-01-18] MEDS: Apixaban 5 MG TAB PO SCH (20:48)
[2020-01-18] MEDS ORDERED: Non-Formulary Item 1 EACH (Sacubitril/Valsartan [Entresto 97 Mg-103 Mg Tablet] 1 TAB) PO SCH (21:00)
[2020-01-18] MEDS ORDERED: SOTALOL HCL PO SCH (21:00)
[2020-01-18] MEDS ORDERED: Non-Formulary Item 1 EACH (Carvedilol [Carvedilol] 1 TAB) PO SCH (21:00)
[2020-01-18] MEDS ORDERED: Atorvastatin Calcium 40 MG TAB PO SCH (21:00)
[2020-01-19 05:01] LABS: Anion Gap 14 mmol/L (10-20); BUN (Urea Nitrogen) 15 mg/dL (9.8-20.1); Calc. Creatinine Clearance 90 mL/min (70-130); Calcium 9.6 mg/dL (7.8-10.44); Carbon Dioxide 26 mmol/L (23-31); Chloride 101 mmol/L (98-107); Estimated GFR-MDRD 61; Glucose 111 mg/dL (80-115); Potassium 4.2 mmol/L (3.5-5.1); Sodium 137 mmol/L (136-145)
[2020-01-19] MEDS ORDERED: Spironolactone 25 MG TAB PO SCH (08:00)
[2020-01-19 08:06] VITALS: TEMP 98
[2020-01-19] MEDS: Furosemide 20 MG TAB PO SCH ×2 (08:31→12:39)
[2020-01-19] MEDS: Carvedilol 6.25 MG TAB PO SCH (08:32)
[2020-01-19] MEDS: Apixaban 5 MG TAB PO SCH (08:32)
[2020-01-19] MEDS: Sacubitril 49 MG/Valsartan 51 MG TABLET PO SCH (08:32)
[2020-01-19] MEDS: Sotalol HCl 80 MG TAB PO SCH (08:33)
[2020-01-19] MEDS: Sucralfate 1 GM TAB PO SCH ×2 (08:33→12:39)
[2020-01-19] MEDS ORDERED: Non-Formulary Item 1 EACH (Ferrous Sulfate [Ferrous Sulfate] 325 MG) PO SCH (09:00)
[2020-01-19] MEDS ORDERED: Ferrous Sulfate 325 MG TAB PO SCH (09:00)
[2020-01-19] MEDS ORDERED: Aspirin 81 mg Enteric Coated Tablet PO SCH (09:00)
[2020-01-19 09:20] LABS: Hemoglobin 12.4 g/dL (12.0-16.0); Platelet Count 386 thou/uL (130-400)
[2020-01-19 12:13] VITALS: BP 130/78
--- NOTE | 2020-01-19 13:00 | PDOC.HOSPP ---
- Subjective Encounter Date: 01/19/20 Encounter Time: 12:58 Subjective: Ms. Metzger was seen today in follow-up of CHF exacerbation. She does not have any complaints. She sayss he feels great. She denies chest pain or dyspnea. - Objective Vital Signs & Weight: Vital Signs (12 hours) Temp Pulse Pulse Resp BP BP BP 01/19/20 11:35 98.0 F 93 20 01/19/20 10:56 92 130/78 105/79 01/19/20 08:33 92 131/85 01/19/20 08:32 131/85 01/19/20 07:35 98.0 F 92 20 01/19/20 06:54 01/19/20 04:27 98.2 F 88 20 01/19/20 01:48 BP Pulse Ox Pulse Ox Pulse Ox 01/19/20 11:35 114/75 94 L 01/19/20 10:56 96 96 01/19/20 08:33 01/19/20 08:32 01/19/20 07:35 131/85 95 01/19/20 06:54 95 01/19/20 04:27 124/89 95 01/19/20 01:48 95 Weight Weight 202 lb 8 oz I&O: 01/18/20 01/19/20 01/20/20 06:59 06:59 06:59 Intake Total 100 2634 240 Output Total 600 4650 200 Balance -500 40 Result Diagrams: 01/19/20 09:09 01/19/20 09:09 Hospitalist ROS - Medication Medications: Active Medications Generic Name Dose Route Start Last Admin Trade Name Pita PRN Reason Stop Dose Admin Apixaban 5 mg 01/18/20 21:00 01/19/20 08:32 Eliquis PO 5 mg BID [facility] Administration Aspirin 81 mg 01/19/20 09:00 01/19/20 08:32 Ecotrin PO 81 mg DAILY [facility] Administration Atorvastatin Calcium 40 mg 01/18/20 21:00 01/18/20 20:48 Lipitor PO 40 mg HS [facility] Administration Carvedilol 12.5 mg 01/18/20 21:00 01/19/20 08:32 Coreg PO 12.5 mg BID [facility] Administration Ferrous Sulfate 325 mg 01/19/20 09:00 01/19/20 08:31 Feosol PO 325 mg DAILY [facility] Administration Furosemide 20 mg 01/19/20 09:00 01/19/20 12:39 Lasix PO 20 mg 0900,1400 [facility] Administration Sacubitril/Valsartan 2 tab 01/18/20 21:00 01/19/20 08:32 Entresto 49 Mg-51 Mg Tablet PO 2 tab BID [facility] Administration Sodium Chloride 10 ml 01/18/20 21:00 01/19/20 08:33 Flush - Normal Saline IVF 10 ml Q12HR [facility] Administration Sotalol HCl 80 mg 01/18/20 21:00 01/19/20 08:33 Betapace PO 80 mg BID [facility] Administration Spironolactone 25 mg 01/19/20 08:00 01/19/20 08:32 Aldactone PO 25 mg QAM-WM [facility] Administration Sucralfate 1 gm 01/18/20 13:00 01/19/20 12:39 Carafate PO 1 gm QID [facility] Administration - Exam Eye: PERRL Heart: RRR, no murmur, no gallops, no rubs, normal peripheral pulses Respiratory: CTAB, no wheezes, no rales, no ronchi, normal chest expansion, no tachypnea Gastrointestinal: soft, non-tender, non-distended, normal bowel sounds, no palpable masses, no hepatomegaly, no splenomegaly Extremities: no cyanosis, no clubbing (trace pedal edema) Hosp A/P (1) Acute on chronic systolic heart failure, NYHA class 2 Code(s): I50.23 - ACUTE ON CHRONIC SYSTOLIC (CONGESTIVE) HEART FAILURE Status : Acute (2) Atrial arrhythmia Code(s): I49.8 - OTHER SPECIFIED CARDIAC ARRHYTHMIAS Status: Acute (3) Dyslipidemia Code(s): E78.5 - HYPERLIPIDEMIA, UNSPECIFIED Status: Chronic (4) HTN (hypertension) Code(s): I10 - ESSENTIAL (PRIMARY) HYPERTENSION Status: Chronic Qualifiers: Hypertension type: essential hypertension Qualified Code(s): I10 - Essential (primary) hypertension - Plan * Acute on chronic systolic heart failure- improved * Cardiology input noted * Spironolactone was added * Atrial Arrhythmia- stable on Sotalol and Carvediolol * Hopefully home later today
--- NOTE | 2020-01-19 14:12 | PDOC.EP ---
- Subjective Date: 01/19/20 Time: 09:00 Interval History: Follow up note for rhythm management after recent PVAI and PAC ablation. Mrs. Metzger feels greatly improved after significant diuresis. She is now eager to go home. - Review of Systems Constitutional: denies: chills, fever, malaise, sweats, weakness, other Respiratory: denies: cough, pleuritic pain, shortness of breath, sputum, wheezing Cardiology: denies: chest pain, edema, heart racing, light headedness, palpitations, passing out Gastrointestinal: denies: abdominal pain, constipation, diarrhea Musculoskeletal: denies: unstable gait, falls, neck pain, shoulder pain - Objective Allergies/Adverse Reactions: Allergies Allergy/AdvReac Type Severity Reaction Status Date / Time No Known Allergies Allergy Verified 01/07/20 10:00 Current Medications Acetaminophen (Tylenol) 650 mg PO Q4H PRN PRN Reason: Headache/Fever/Mild Pain (1-3) Apixaban (Eliquis) 5 mg PO BID [facility] Last Admin: 01/19/20 08:32 Dose: 5 mg Aspirin (Ecotrin) 81 mg PO DAILY [facility] Last Admin: 01/19/20 08:32 Dose: 81 mg Atorvastatin Calcium (Lipitor) 40 mg PO HS [facility] Last Admin: 01/18/20 20:48 Dose: 40 mg Carvedilol (Coreg) 12.5 mg PO BID [facility] Last Admin: 01/19/20 08:32 Dose: 12.5 mg Ferrous Sulfate (Feosol) 325 mg PO DAILY [facility] Last Admin: 01/19/20 08:31 Dose: 325 mg Furosemide (Lasix) 20 mg PO 0900,1400 [facility] Last Admin: 01/19/20 12:39 Dose: 20 mg Hydralazine HCl (Apresoline) 10 mg SLOW IVP Q4H PRN PRN Reason: SBP > 180 and HR < 70 Sacubitril/Valsartan (Entresto 49 Mg-51 Mg Tablet) 2 tab PO BID [facility] Last Admin: 01/19/20 08:32 Dose: 2 tab Sodium Chloride (Flush - Normal Saline) 10 ml IVF Q12HR [facility] Last Admin: 01/19/20 08:33 Dose: 10 ml Sodium Chloride (Flush - Normal Saline) 10 ml IVF PRN PRN PRN Reason: Saline Flush Sotalol HCl (Betapace) 80 mg PO BID [facility] Last Admin: 01/19/20 08:33 Dose: 80 mg Spironolactone (Aldactone) 25 mg PO QAM-WM [facility] Last Admin: 01/19/20 08:32 Dose: 25 mg Sucralfate (Carafate) 1 gm PO QID [facility] Last Admin: 01/19/20 12:39 Dose: 1 gm Vital Signs & Weight: Vital Signs Temp Pulse Pulse Resp BP BP BP 01/19/20 11:35 98.0 F 93 20 01/19/20 10:56 92 130/78 105/79 01/19/20 08:33 92 131/85 01/19/20 08:32 131/85 01/19/20 07:35 98.0 F 92 20 01/19/20 06:54 01/19/20 04:27 98.2 F 88 20 BP Pulse Ox Pulse Ox Pulse Ox 01/19/20 11:35 114/75 94 L 01/19/20 10:56 96 96 01/19/20 08:33 01/19/20 08:32 01/19/20 07:35 131/85 95 01/19/20 06:54 95 01/19/20 04:27 124/89 95 Weight 202 lb 8 oz I/O: I/O 01/18/20 01/19/20 01/20/20 06:59 06:59 06:59 Intake Total 100 2634 240 Output Total 600 4650 200 Balance -500 -2015 40 - Quality Measures CV meds: Eliquis: Yes - Physical Exam General: alert & oriented x3, appears well, no apparent distress, speech clear, affect appropriate HEENT: mucus membranes moist, normocephaly Neck: supple neck, midline trachea, no JVD/HJR, no masses, no bruit, no lymphadenopathy, no thromegaly Cardiology: regular rate, irregularly irregular Lungs: clear to auscultation, normal breath sounds, no wheeze, rales, rhonchi Neurology: cranial nerve 2-12 intact, grossly intact, sensory function intact - Labs Result Diagrams: 01/19/20 09:09 01/19/20 09:09 - EKG Interpretation EKG Method: Telemetry EKG shows: Sinus rhythm (PACs and PVCs) - Device Device: biventricular, pacemaker Device Result: [employer]tr[employer] - Assessment/Plan Assessment/Plan: 1. Premature atrial complexes - high burden - s/p PVAI with focal PAC ablation this month -restarted Sotalol for duration of acute inflammatory recovery phase post ablation (~3 months) 2. Premature ventricular complexes -low burden, occasional couplets seen 3. BiV PPM, medtronic - normal function - optivol recently increased supported fluid overload/retention - LRL 70bpm 4. Non ischemic cardiomyopathy -moderately reduced EF 40-45% -CHF symptoms after recent ablation requiring lasix -managed by cardiology Continue Eliquis 5mg BID and sotalol 80mg PO BID. 12 lead EKG pending. QTc was ~ 470 on admission EKG. If QTc <500msec may continue current sotalol dose. Will see back in clinic for routine post ablation follow up.
--- NOTE | 2020-01-19 15:22 | DIS ---
DATE OF ADMISSION: 01/18/2020 DATE OF DISCHARGE: 01/19/2020 PRIMARY CARE PHYSICIAN: Dr. Rae Garcia. DISCHARGE DISPOSITION: Home. DISCHARGE DIAGNOSES: 1. [id number] systolic heart failure. 2. Hypertension. 3. Atrial arrhythmia. 4. History of left bundle-branch block. DISCHARGE MEDICATIONS: Include; Aldactone 25 mg p.o. daily was added. Continue: 1. Carafate 1 g q.i.d. 2. Potassium chloride 20 mEq daily. 3. Lasix 20 mg daily. 4. Sotalol 80 mg twice a day. 5. Entresto 97/103 one tablet twice a day. 6. Protonix 40 mg daily. 7. Iron sulfate 325 mg daily. 8. Carvedilol 12.5 mg twice a day. 9. Atorvastatin 40 mg at bedtime. 10. Aspirin 81 mg daily. 11. Eliquis 5 mg twice a day. CODE STATUS: Full code. ALLERGIES: NO KNOWN DRUG ALLERGIES. HOSPITAL COURSE: Ms. Metzger is a very pleasant 64-year-old female, who was admitted to the hospital after she had severe difficulty breathing. She was evaluated in the ER and found to be volume overloaded. She was placed in observation. She was given one dose of IV Lasix in the ER with a very good diuresis with over 2000 net fluid output. She was evaluated by her rod mill tender and Aldactone was added to her regimen. Her pacemaker was interrogated. There was some evidence of atrial tachycardia, but it was prior to her symptomatology. The following day, she was feeling much improved and was able to be discharged home with close followup with her primary care physician in approximately 1 week and also with Cardiology as instructed. Job ID: [id number]
--- NOTE | 2020-01-19 17:32 | PDOC.CPN ---
- Subjective Date: 01/19/20 Time: 12:30 Interval history: She is doing much better. Back to baseline. - Review of Systems General: denies: fever/chills, weight/appetite/sleep changes, night sweats, fatigue Respiratory: denies: cough, congestion, shortness of breath, exercise intolerance Cardiovascular: denies: chest pain, palpitation, edema, paroxysmal nocturnal dyspnea, orthopnea Gastrointestinal: denies: nausea, vomiting, diarrhea, constipation, abd pain, GI bleeding Musculoskeletal: denies: pain, tenderness, stiffness, swelling, arthritis/ arthralgias Neurological: denies: numbness, syncope, seizure, weakness - Objective Allergies/Adverse Reactions: Allergies Allergy/AdvReac Type Severity Reaction Status Date / Time No Known Allergies Allergy Verified 01/07/20 10:00 Vital Signs & Weight: Vital Signs Temp Pulse Pulse Resp BP BP BP 01/19/20 11:35 98.0 F 93 20 01/19/20 10:56 92 130/78 105/79 01/19/20 08:33 92 131/85 01/19/20 08:32 131/85 01/19/20 07:35 98.0 F 92 20 01/19/20 06:54 BP Pulse Ox Pulse Ox Pulse Ox 01/19/20 11:35 114/75 94 L 01/19/20 10:56 96 96 01/19/20 08:33 01/19/20 08:32 01/19/20 07:35 131/85 95 01/19/20 06:54 95 Weight 202 lb 8 oz - Physical Exam General: alert & oriented x3 HEENT: mucus membranes moist Neck: supple neck Cardiac: regular rate and rhythm Lungs: clear to auscultation Neuro: grossly intact Abdomen: active bowel sounds Extremities: no edema Skin: clear Musculoskeletal: no pain - Labs Result Diagrams: 01/19/20 09:09 01/19/20 09:09 Troponin/CKMB CK-MB (CK-2) 0.5 ng/mL (0-6.6) 01/18/20 01:25 Troponin I 0.105 ng/mL (< 0.028) H 01/18/20 07:55 - Telemetry Sinus rhythms and dysrhythmias: sinus rhythm - Assessment/Plan Assessment/Plan: 1. Acute on chronic systolic CHF. 2 S/P PVC ablation (30,000/day burden) a week ago 3. LBBB 4. S/P BiV PPM in the past PLAN: - Seems euvolemic - May discharge home on daily Lasix at 20 mg for next 3 days and then only use as needed. - Follow up in the office in 2-4 weeks.
--- NOTE | 2020-01-19 22:48 | EKG ---
Test Reason : Blood Pressure : / mmHG Vent. Rate : 090 BPM Atrial Rate : 090 BPM P-R Int : 142 ms QRS Dur : 112 ms QT Int : 450 ms P-R-T Axes : 069 095 052 degrees QTc Int : 550 ms AV sequential or dual chamber electronic pacemaker When compared with ECG of 18-JAN-2020 01:10, (Unconfirmed) Electronic ventricular pacemaker has replaced Sinus rhythm Confirmed by Lynne MCKAY ([id number]) on 01/19/2020 10:48:27 PM Referred By: [facility] Confirmed By:Lynne MCKAY
--- NOTE | 2020-01-20 14:56 | EKG ---
Test Reason : Blood Pressure : / mmHG Vent. Rate : 095 BPM Atrial Rate : 095 BPM P-R Int : 138 ms QRS Dur : 062 ms QT Int : 366 ms P-R-T Axes : 062 112 -17 degrees QTc Int : 459 ms Demand pacemaker; interpretation is based on intrinsic rhythm Sinus rhythm with Fusion complexes Low voltage QRS Lateral infarct , possibly acute Abnormal ECG Confirmed by YECENIA SIFUENTES ([id number]), copy editor ZENAIDA CALVO ([id number] on 01/20/2020 2:56:06 PM Referred By: Confirmed By:YECENIA SIFUENTES
== END 2020-01-19 15:47 | disposition home or self-care (01) ==
LOC: ERS 00:53 → 2SW 02:35
PROVIDERS: ADMIT Internal Medicine; ATTEND Internal Medicine
DX: I11.0 Hypertensive heart disease with heart failure (principal); I50.43 Acute on chronic combined systolic (congestive) and diastolic (congestive) heart failure; I49.9 Cardiac arrhythmia, unspecified; E78.5 Hyperlipidemia, unspecified; Z79.01 Long term (current) use of anticoagulants; Z79.82 Long term (current) use of aspirin; Z79.899 Other long term (current) drug therapy; Z95.0 Presence of cardiac pacemaker
CPT/HCPCS: 71045; 80048; 80053; 82550; 82553; 82565; 83880; 84484 ×2; 85014; 85018; 85025; 85049; 93005 ×2; 93798 ×2; 96374; 96376; 99285; G0378 ×3; 36415; 93010; J1940

== ENCOUNTER 2020-06-21 07:35 | Outpatient (CLI) | payer MEDICARE, OTHER ==
[2020-06-21 14:05] LABS: Hemoglobin 13.1 g/dL (12.0-16.0); Mean Corpuscular HGB CONC 33.3 g/dL (32.0-36.0); Mean Corpuscular Hemoglobin 34.1 pg (27.0-31.0); Mean Platelet Volume 9.5 fL (7.4-10.4); Platelet Count 282 thou/uL (130-400); RBC Distribution Width 12.3 % (11.5-14.5); Red Blood Cell (RBC) Count 3.84 mill/uL (4.20-5.40); White Blood Cell (WBC) Count 6.8 thou/uL (4.8-10.8)
[2020-06-21 14:27] LABS: INR-International Normal Ratio 1.1; Prothrombin Time 14.4 sec (12.0-14.7)
[2020-06-21 14:40] LABS: Anion Gap 13 mmol/L (10-20); BUN (Urea Nitrogen) 13 mg/dL (9.8-20.1); Calc. Creatinine Clearance 0 mL/min (70-130); Calcium 9.8 mg/dL (7.8-10.44); Carbon Dioxide 26 mmol/L (23-31); Chloride 100 mmol/L (98-107); Estimated GFR-MDRD 68; Glucose 119 mg/dL (80-115); Potassium 4.7 mmol/L (3.5-5.1); Sodium 134 mmol/L (136-145)
[2020-06-22 13:15] LABS: SARS-CoV-2 MS2 Positive; SARS-CoV-2 N Gene Negative; SARS-CoV-2 S Gene Negative; SARS-CoV-2 by NAA Not Detected (NotDetected); SARS-CoV-2 orf1ab Negative
== END 2020-06-21 07:36 | disposition home or self-care (01) ==
LOC: LABBT 07:35
PROVIDERS: ATTEND Internal Medicine Cardiovascular Disease
DX: Z01.818 Encounter for other preprocedural examination (principal); Z20.828 Contact with and (suspected) exposure to other viral communicable diseases; I48.91 Unspecified atrial fibrillation
CPT/HCPCS: 80048; 85027; 85610; 85730; 93005; U0003; 87635; 93010